=== PATIENT | female | born 1980 | race Caucasian/White ===

== ENCOUNTER 2019-12-31 08:44 | Outpatient (REF) | payer MEDICAID, SELFPAY ==
[2020-01-01 14:17] LABS: H Pylori Breath Test NOT DETECTED (NOT DETECTED)
== END 2019-12-31 08:45 | disposition home or self-care (01) ==
LOC: HO.LNP 08:44
PROVIDERS: Surgery; PCP Nurse Practitioner Family; Referring Provider Nurse Practitioner Family; Visit Provider Physician Assistant
DX: E66.01 Morbid (severe) obesity due to excess calories (principal); G47.30 Sleep apnea, unspecified; Z11.0 Encounter for screening for intestinal infectious diseases
CPT/HCPCS: 83013; 99211

== ENCOUNTER 2020-01-04 07:58 | Outpatient (REF) | payer MEDICAID, SELFPAY ==
--- NOTE | 2020-01-04 08:34 | ECG_ITS ---
Test Reason : CP Blood Pressure : / mmHG Vent. Rate : 065 BPM Atrial Rate : 065 BPM P-R Int : 102 ms QRS Dur : 122 ms QT Int : 452 ms P-R-T Axes : -07 -34 095 degrees QTc Int : 470 ms Normal sinus rhythm Tlrxv-Mapnbuihf-Afptr Left ventricular hypertrophy with repolizeration abnormality. Abnormal ECG No previous ECGs available Referred By: Isidoro Ahumada Electronically Signed By:ALBERTINA CANTRELL MD
--- NOTE | 2020-01-04 08:57 | XR_ITS ---
EXAMINATION: XR CHEST CLINICAL INFORMATION: Moderate severe vicinity due to excess calories. COMPARISON: None TECHNIQUE: 2 views of the chest were obtained. FINDINGS: No significant abnormality is noted involving the heart, lungs, mediastinum, bony thorax or soft tissues. XR/XR chest 2V IMPRESSION: Unremarkable chest examination.
[2020-01-04 09:10] LABS: MANUAL DIFF FLAG NO
[2020-01-04 09:18] LABS: Basophils Percent Auto 0.3 % (0-2); Eosinophils Absolute Auto 0.1 X10*3/uL (0.0-0.4); Eosinophils Percent Auto 1.1 % (0-4); Hematocrit 41.9 % (37-47); Hemoglobin 13.5 g/dl (12.0-16.0); Imm Gran Abs Auto 0.03 X10*3/uL (0.00-0.03); Imm Gran Pct Auto 0.4 % (0.0-0.4); Lymphocytes Absolute Auto 1.7 X10*3/uL (1.2-4.9); Lymphocytes Percent Auto 22.7 % (20-40); Mean Corpuscular HGB Conc 32.2 g/dl (31.0-35.0); Mean Corpuscular Hemoglobin 27.3 pg (27.0-33.0); Mean Corpuscular Volume 84.6 fL (80-98); Mean Platelet Volume 10.8 fL (9.4-12.3); Monocytes Absolute Auto 0.4 X10*3/uL (0.1-1.2); Monocytes Percent Auto 5.9 % (2-11); Neutrophils Absolute Auto 5.2 X10*3/uL (2.0-8.3); Neutrophils Percent Auto 69.6 % (45-73); Platelet Count 279 X10*3/uL (160-400); Red Blood Count 4.95 X10*6/uL (4.20-5.50); Red Cell Distribution Width 13.7 % (11.0-16.0); White Blood Count 7.5 X10*3/uL (4.8-10.8)
[2020-01-04 09:24] LABS: Estimated Average Glucose 108 mg/dL; Hemoglobin A1c % 5.4 %
[2020-01-04 09:40] LABS: Alanine Aminotransferase 25 U/L (0-31); Albumin Level 4.1 g/dL (3.5-5.0); Alkaline Phosphatase 86 U/L (39-117); Anion Gap 14 (12-20); Aspartate Amino Transferase 15 U/L (5-31); Bilirubin Total 0.4 mg/dL (0.0-1.0); Blood Urea Nitrogen 10 mg/dL (9-16); C Reactive Protein 2.18 mg/dL (< or = 0.50); Carbon Dioxide 25 mmol/L (22-29); Chloride 104 mmol/L (96-108); Cholesterol 154 mg/dL; Estimated Glomerular Filt Rate > 60; Glucose Random 84 mg/dL (60-115); HDL Cholesterol 39 mg/dL; LDL Cholesterol Calculated 105 mg/dl; Potassium 3.9 mmol/l (3.3-5.1); Sodium 139 mmol/L (135-145); Total Protein 7.3 g/dL (6.5-8.0); Triglycerides 54 mg/dL
[2020-01-04 10:02] LABS: Ferritin 91 ng/mL (10-250); TSH reflex Free T4 0.62 mIU/mL (0.32-4.0)
[2020-01-04 10:08] LABS: Folate 15.1 ng/mL (> or = 4.0); Vitamin B12 423 pg/mL (200-900)
[2020-01-05 23:17] LABS: Insulin Level Total 7.8 uIU/mL
[2020-01-07 05:52] LABS: Zinc 95 mcg/dL (60-130)
[2020-01-09 22:02] LABS: Vitamin A 31 mcg/dL (38-98)
[2020-01-10 12:57] LABS: Vitamin B1 <6 nmol/L (8-30)
== END 2020-01-04 07:59 | disposition home or self-care (01) ==
LOC: HO.LAB 07:58
PROVIDERS: PCP Nurse Practitioner Family; Visit Provider Surgery
DX: E66.01 Morbid (severe) obesity due to excess calories (principal); G47.30 Sleep apnea, unspecified
CPT/HCPCS: 36415; 71046; 80053; 80061; 82607; 82728; 82746; 83036; 83525; 84425; 84443; 84590; 84630; 85025; 86140; 93005

== ENCOUNTER 2020-01-11 13:01 | Outpatient (REF) | payer MEDICAID, SELFPAY ==
--- NOTE | 2020-01-11 08:44 | US_ITS ---
EXAMINATION: US COMPLETE ABDOMEN WITH LIVER ELASTOGRAPHY CLINICAL INFORMATION: Morbid obesity. COMPARISON: None. TECHNIQUE: Real-time imaging of the abdominal viscera. Noninvasive ultrasound liver fibrosis assessment is performed using Yasmine ElastPQ point quantification shear wave elastography (pSWE) with a 5 MHz transducer. Multiple elastography samples are obtained. FINDINGS: PANCREAS: The visualized pancreatic head and body are normal in appearance. The remainder of the pancreas is obscured from visualization by the overlying bowel gas. ABDOMINAL AORTA: The proximal, middle, and distal aortic segments are normal in caliber. INFERIOR VENA CAVA: Visualized portions are normal. LIVER: The liver demonstrates normal size, contour and increased echogenicity. There is focal fatty sparing near CBD. There is a focal hypoechoic lesion left hepatic lobe measuring 1.3 x 1.1 x 0.9 cm. Question focal mass versus complex cyst. Intrahepatic biliary duct dilatation. The right lobe measures 15.4 cm in length. The left lobe measures 9.8 cm in length. There is hepatopedal flow seen in the portal vein on Doppler exam. Shear wave elastography provides a median stiffness of 1.23 m/s (reference: normal median stiffness is 0.81 - 1.22 m/s). The IQR/median stiffness to assess sampling precision is 0.12 (reference: optimal IQR/median stiffness is under 0.3). GALLBLADDER: The gallbladder is suboptimally visualized, most likely due to packed echogenic shadowing gallstones. COMMON BILE DUCT: Normal in caliber measuring 0.3 cm in diameter. RIGHT KIDNEY: Normal. No hydronephrosis. No renal calculi or focal parenchymal lesions. The kidney measures 12.1 cm in maximum dimension. LEFT KIDNEY: Normal. No hydronephrosis. No renal calculi or focal parenchymal lesions. The kidney measures 11.8 cm in maximum dimension. SPLEEN: Normal. The spleen measures 9.3 cm in maximum dimension. FREE FLUID: None. US/US abdomen comp w elastography IMPRESSION: 1. Diffusely echogenic liver with focal fatty sparing. Suspect focal mass versus complex cyst left hepatic lobe. Recommend CT liver with and without contrast evaluation. There is packed gallbladder with echogenic stones and shadowing but no wall thickening. 2. Elastography: Incgev-fu-yexu fibrosis, score F0 - F1
--- NOTE | 2020-01-11 09:28 | FL_ITS ---
EXAMINATION: XR GI SERIES CLINICAL INFORMATION: Morbid severe obesity. COMPARISON: None TECHNIQUE: Routine upper GI air-contrast study was performed in upright and lying position. FINDINGS: Following oral administration of thick barium and effervescent granules in upright view, there is normal propagation of bolus from the oral cavity through the pharynx, esophagus into stomach without any evidence of obstruction, narrowing or stricture. There is a small sliding hiatal hernia. On placing patient supine and prone lying, there is normal course, caliber and peristalsis of the stomach, jejunal bulb and C-loop. Incidental finding of a grbfq-al-vdzukvca-sized hiatal hernia into the mid esophagus is noted. FLUOROSCOPY TIME: 1.7 minutes DOSE AREA PRODUCT: 42.562 uGy-m2 (microgray-meter squared) FL/FL upper GI series IMPRESSION: Moderate gastroesophageal reflux. No hiatal hernia seen.
== END 2020-01-11 13:02 | disposition home or self-care (01) ==
LOC: HO.US 13:01
PROVIDERS: PCP Nurse Practitioner Family; Visit Provider Surgery
DX: Z01.818 Encounter for other preprocedural examination (principal); E66.01 Morbid (severe) obesity due to excess calories; K21.9 Gastro-esophageal reflux disease without esophagitis; G47.30 Sleep apnea, unspecified
CPT/HCPCS: 74240; 76705; 76981

== ENCOUNTER → 2020-01-13 09:18 | Outpatient (BNVA) | payer MEDICAID, SELFPAY | PROVIDERS: PCP Nurse Practitioner Family; Visit Provider Surgery | DX: Z76.89 Persons encountering health services in other specified circumstances (principal) ==

== ENCOUNTER → 2020-01-19 08:32 | Outpatient (REF) | payer MEDICAID, SELFPAY ==
--- NOTE | 2020-01-19 08:36 | CA_ITS ---
Transthoracic Echocardiogram Patient (Last, First, Middle): Eliza Lala, Gender: Female Date of : 1980 Age: 39 Procedure Date: 01/19/2020 Procedure Type: Transthoracic Echocardiogram Location: OP Height: 160.02 cm Weight: 108.86 kg BSA: 2.09 m2 Heart Rate: bpm BP: 117 / 76 mmHg Product Owner: Referring MD: Isidoro Ahumada MD Symptoms: E66.01 - Morbid (severe) obesity due to excess calories Study Quality: Good ECG Rhythm: Sinus Conclusions: - The left ventricular systolic function is normal. The visually estimated ejection fraction is between 60-65%. - No obvious valvular pathology seen on this study. Findings Procedure Information Contrast agent, definity, is being given per protocol without apparent complications. Left Ventricle Normal left ventricular cavity size. There is normal left ventricular wall thickness. The left ventricular systolic function is normal. The visually estimated ejection fraction is between 60-65%. There is no evidence of regional wall motion abnormalities. Diastolic function is normal for age. Right Ventricle Normal right ventricular cavity size and systolic function. Atria The left atrium is normal in size. The right atrium is normal in size. Aortic Valve There is a normal trileaflet aortic valve. There is no aortic valve stenosis. There is no aortic valve regurgitation. Mitral Valve There is mild mitral annular calcification. There is trace mitral valve regurgitation. There is no mitral valve stenosis. Pulmonic Valve The pulmonic valve was not well visualized. Tricuspid Valve There is mild tricuspid valve regurgitation. The pulmonary artery systolic pressure is normal. Great Vessels The aortic annulus, sinuses of valsalva, asc aorta, and aortic arch are normal in size. Venous The inferior vena cava is normal in size and collapses greater than 50% with inspiration. Pericardium/Pleural There is no evidence of pericardial effusion. Prior Study Comparison No prior study available for comparison. Recommendations, Care & Conclusions No obvious valvular pathology seen on this study. Measurements 2D Linear Measurements RVIDd: 2.97 RVIDd Index: 1.42 IVSd: 0.79 0.6-0.9/0.6-1.0 cm LVIDd: 5.19 3.9-5.3/4.2-5.9 cm LVIDd Index: 2.48 2.4-3.2/2.2-3.1 cm/m2 LVIDs: 3.72 2.0-3.6 cm LVPWd: 0.88 0.7-1.1 cm Ao Root: 2.40 2.1-3.5 cm LA Diam: 3.90 2.7-3.8/3.0-4.0 cm LAIDs Index: 1.87 1.5-2.3 cm/m2 LV Mass: 190.79 67-162/88-224 g LV Mass Index: 91.29 43-95/49-115 g/m2 LVOT Diam: 2.00 3.0+(-)1.3 cm 2D Systolic Function EF 4C: 58.40 >55% EF 2C: 55.90 >55% EF BiP: 58.30 >55% Mitral Valve MV Pk E: 1.19 MV PK A: 0.61 MV Decel Time: 220.00 E/A: 1.90 E'Lateral: 9.90 E'Medial: 9.03 E/E' Med: 13.20 E/E' Lat: 12.00 Aortic Valve AoV Pk Bebeto: 1.96 AoV Mn Bebeto: 1.35 AoV VTI: 0.45 AoV Pk Grad: 15.00 Aov Mn Grad: 8.00 DAJUAN Cont.VTI: 1.92 LVOT LVOT Pk Bebeto: 1.17 LVOT Mn Bebeto: 0.83 LVOT VTI: 0.28 LVOT Pk Grad: 5.00 LVOT Mn Grad: 3.00 LVOT Diam: 2.00 LVOT Area: 3.14 Diastolic Function MV Pk E: 1.19 MV Pk A: 0.61 E/A: 1.90 E'Medial: 9.03 E/E' Med: 13.20 E' Laterial: 9.90 E/E' Lat: 12.00 Tricuspid Valve TR Pk Bebeto: 2.46 TR Pk Grad: 24.00 RA Press: 8.00 RVSP: 32.00 Great Vessels Aorta Ao Root-2D: 2.40 2.0-3.7 cm Ao Asc: 3.00 2.1-3.4 cm Ao Arch: 2.70 Updated in Other Vendor System with Status of Final Bang Villafuerte MD electronically signed on 01/19/2020 12:38:46 PM with status of Final
--- NOTE | 2020-01-19 09:39 | CT_ITS ---
EXAMINATION: CT ABDOMEN AND PELVIS WITHOUT AND WITH CONTRAST CLINICAL INFORMATION: Follow up liver lesion COMPARISON: Previous abdominal ultrasound December 2019 TECHNIQUE: Multidetector volumetric imaging was performed of the abdomen and pelvis before and after the IV administration of 85 mL of Omnipaque 350 intravenous contrast. Sagittal and coronal reformatted images were obtained on the technologist's workstation. This CT examination was performed using dose optimization techniques as appropriate, variously including the following: *Automated exposure control *Adjustment of mA and/or kV according to patient size (this includes techniques or standardized protocols for targeted exams where dose is matched to indication/reason for exam; i.e. extremities or head) *Use of iterative reconstruction technique DLP: 02/14/2002 mGy-cm FINDINGS: LUNG BASES: The visualized lung bases are unremarkable. LIVER, GALLBLADDER, AND BILIARY TREE: The liver is slightly low in attenuation suggestive of mild fatty infiltration. The liver is normal in size and shape. There is a 1.3 x 2 cm lesion in the peripheral posterior segment of the right lobe of the liver. This demonstrates peripheral puddling enhancement suggestive of a hemangioma axial image 64 image 4 and 5. There are 2 additional low-attenuation lesions in the posterior segment of the right lobe of the liver measuring 1.4 x 1.5 cm axial image 53 and measuring 0.6 x 0.9 cm axial image 62 and question third approximately 8 x 10 mm lesion axial image 64. These are low in attenuation with respect to the liver following contrast on both arterial and venous phases. These lesions are not appreciated on noncontrast images. These appear higher in attenuation and not compatible with a simple cysts. Enhancing vascular lesions are unlikely such as a hemangioma, FNH and adenoma and hepatocellular carcinoma . Differential would include possible abscess or metastasis. The low-attenuation lesion in the left lobe of the liver seen by ultrasound is not definitely appreciated by CT scan. The gallbladder is filled with gallstones. There is no intra or extrahepatic biliary duct dilatation. PANCREAS: Unremarkable SPLEEN: Unremarkable ADRENAL GLANDS: Unremarkable KIDNEYS AND URETERS: The kidneys are normal in size, shape, and attenuation. No hydronephrosis, hydroureter, or calculi seen. No perinephric stranding. GASTROINTESTINAL TRACT: There is stool throughout the colon questionable for constipation. Visualized bowel is otherwise unremarkable. The appendix is not seen. ABDOMINAL WALL: There is a small umbilical hernia containing fat. LYMPH NODES: Normal VASCULAR: Unremarkable OSSEOUS STRUCTURES: There are mild degenerative changes of the spine. CT/CT abdomen wo/w con IMPRESSION: Mild fatty infiltration of the liver. 1.3 x 2 cm peripheral hemangioma in the right lobe of the liver. This was not seen by ultrasound. There are 3 additional low-attenuation nonenhancing lesions in the right lobe of the liver that are difficult to characterize and were not seen by ultrasound. Possible abscess or metastasis should be considered. The liver lesion seen by ultrasound in the left lobe of the liver is not appreciated by CT scan. Follow-up liver MRI should be considered. Gallstones. Stool throughout the colon suggestive of constipation. Small umbilical hernia fat.
[2020-01-19] MEDS: iohexoL 350 MG/ML 100 ML INFUS..BTL 85 ML IV (11:58)
[2020-01-19] MEDS: Barium Sulfate Oral (Vanilla) 450 ML ORAL.SUSP 900 ML PO (11:59)
== END ==
LOC: HO.CARD 08:32
PROVIDERS: Visit Provider Surgery
DX: Z01.818 Encounter for other preprocedural examination (principal); I10 Essential (primary) hypertension; R16.0 Hepatomegaly, not elsewhere classified; I45.6 Pre-excitation syndrome; E66.01 Morbid (severe) obesity due to excess calories; G47.30 Sleep apnea, unspecified
CPT/HCPCS: 74170; 93306; Q9957; Q9967

== ENCOUNTER → 2020-01-20 08:12 | Outpatient (BNVA) | payer MEDICAID, SELFPAY | PROVIDERS: PCP Nurse Practitioner Family; Referring Provider Nurse Practitioner Family; Visit Provider Dietitian, Registered | DX: Z76.89 Persons encountering health services in other specified circumstances (principal) ==

== ENCOUNTER 2020-01-20 15:05 | Outpatient (REF) | payer MEDICAID, SELFPAY ==
--- NOTE | 2020-01-20 15:07 | MR_ITS ---
EXAMINATION: MR ABDOMEN WITHOUT AND WITH CONTRAST CLINICAL INFORMATION: Follow-up liver lesions COMPARISON: Previous abdominal ultrasound 01/11/2020 CT of the abdomen and pelvis from yesterday TECHNIQUE: MR abdomen was performed without and with use of 10 mL intravenous Gadavist gadolinium contrast. Postcontrast images are performed in multiphase dynamic sequences. Imaging was performed in 3 planes. FINDINGS: LUNG BASES: The visualized lung bases are unremarkable. LIVER, GALLBLADDER, AND BILIARY TREE: The liver is normal in size and shape. There is mild fatty infiltration of the liver. There is a 1.5 x 2.5 cm low signal on T1 and high signal on T2-weighted sequences lesion in the peripheral posterior segment of the right lobe of the liver. This demonstrates peripheral puddling enhancement following contrast and remains enhanced on delayed sequences. Enhancement characteristics are compatible with a benign hemangioma. There is a 5 x 8 mm lesion in the posterior segment of the right lobe that is low signal on T1 and high signal on T2 weighted sequences. This demonstrates delayed peripheral puddling enhancement and remains enhanced with respect to the liver on delayed sequences and is also consistent with a benign hemangioma. There is a third 1.5 cm lesion in the posterior segment of the right lobe. This is low signal on T1-weighted sequences, high signal on T2-weighted sequences, and demonstrates peripheral puddling enhancement also suggestive of a benign hemangioma. There is a fourth liver lesion in the lateral segment of the left lobe of the liver that measures approximately 1 cm. This is not appreciated on precontrast sequences. This demonstrates peripheral puddling enhancement and remains enhanced with respect to the liver on later sequences also suggestive of a benign hemangioma. This corresponds to lesion seen by ultrasound. There are multiple gallstones in the gallbladder. Gallbladder wall does not appear thickened. There is no pericholecystic fluid. Intrahepatic and extrahepatic bile ducts are normal in caliber. PANCREAS: Unremarkable. SPLEEN: Normal. ADRENAL GLANDS: Normal. KIDNEYS AND URETERS: The kidneys are normal in size, shape, and enhance symmetrically. No hydronephrosis. No perinephric stranding. GASTROINTESTINAL TRACT: No bowel obstruction. No ascites or fluid collection. ABDOMINAL WALL: There is a small umbilical hernia containing fat. LYMPH NODES: No lymphadenopathy. VASCULAR: Unremarkable. OSSEOUS STRUCTURES: Marrow signal normal. MR/MR abdomen wo/w con IMPRESSION: Four small liver lesions all likely representing benign hemangiomas. Mild fatty infiltration of the liver. Multiple gallstones in the gallbladder.
== END 2020-01-20 15:06 | disposition home or self-care (01) ==
LOC: HO.MRI 15:05
PROVIDERS: Visit Provider Surgery
DX: R16.0 Hepatomegaly, not elsewhere classified (principal)
CPT/HCPCS: 74183; A9585

== ENCOUNTER 2020-01-28 06:21 | Day surgery (SDC) | payer MEDICAID, SELFPAY ==
[2020-01-22 12:20] VITALS: BMI 43.0
[2020-01-22 12:41] VITALS: BMI 43.0
--- NOTE | 2020-01-27 12:21 | P.CONAN_ITS ---
Documented by User: Azalea Porras 01/27/20 12:25 HPI - Anesthesia Eval Consult details Narrative: 39yo F for Cholecystectomy Laparoscopic Cardiac cleared at low risk without further cardiac workup needed. (WPW) [facility] Past Medical History Medical History Back pain Depression Hx of chronic urticaria Morbid obesity Sleep apnea with use of continuous positive airway pressure (CPAP) Kdjde-Bgzmyetdk-Cwyqq (WPW) syndrome Family History Family History Mother No problems noted. Father No problems noted. Brother No problems noted. Brother No problems noted. Sister No problems noted. Sister No problems noted. 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) Do you presently have visiting nurse or other home services: No Alcohol intake: never Smoking Status: Never smoker Use of substances other than those prescribed or required for medical reasons: No Advance Directives Information Provided: Yes Recently lost weight without trying: No Meds Allergies Allergy/AdvReac Type Severity Reaction Status Date / Time No Known Allergies Allergy Verified 01/22/20 12:21 [No Known Allergies*] Home Medications Medication Instructions Recorded Confirmed Type epinephrine 0.3 mg/0.3 mL 0.3 mg IM Q10M PRN 12/22/19 01/22/20 History injection, auto-injector fexofenadine 180 mg tablet 180 mg PO DAILY 12/22/19 01/22/20 History norethindrone-e.estradiol-iron 1 tab PO DAILY 01/22/20 01/22/20 History [ ()] Exam Exam Date and Time: January 27, 2020 1221 Height,Weight and Vital Signs: Height 5 ft 3 in Weight 110.223 kg Pertinent Lab Results Pertinent Lab Results: Laboratory Tests 01/04/20 01/04/20 01/04/20 08:15 08:15 08:15 WBC 7.5 Hgb 13.5 Hct 41.9 Plt Count 279 Sodium 139 Potassium 3.9 Chloride 104 Carbon Dioxide 25 BUN 10 Creatinine 0.69 Hemoglobin A1c % 5.4 Total Bilirubin 0.4 AST 15 ALT 25 Alkaline Phosphatase 86 C-Reactive Protein 2.18 H Total Protein 7.3 Albumin 4.1 Narrative Narrative: ECHO 01/2020: - The left ventricular systolic function is normal. The visually estimated ejection fraction is between 60-65%. - No obvious valvular pathology seen on this study. EKG 12/2019: Normal sinus rhythm Rbtsx-Oakzlmwpy-Uypnr Left ventricular hypertrophy with repolizeration abnormality. Abnormal ECG No previous ECGs available Documented by User: Edilia Flores 01/28/20 09:37 PMFSH Past Medical History Medical History Back pain Depression Hx of chronic urticaria Morbid obesity Sleep apnea with use of continuous positive airway pressure (CPAP) Zqzji-Gcqbqiiyt-Baokn (WPW) syndrome Family History Family History Mother No problems noted. Father No problems noted. Brother No problems noted. Brother No problems noted. Sister No problems noted. Sister No problems noted. Daughter Autism Cerebral palsy Family history of problems with anesthesia: No Surgical History Surgical History History of surgery of head S/P tonsillectomy History of Problems with Anesthesia: No Social History Social History Are you a primary behavioral health care manager to a significant other at home: Yes (child) Do you presently have visiting nurse or other home services: No Alcohol intake: never Smoking Status: Never smoker Use of substances other than those prescribed or required for medical reasons: No Advance Directives Information Provided: Yes Recently lost weight without trying: No Meds Allergies Allergy/AdvReac Type Severity Reaction Status Date / Time No Known Allergies Allergy Verified 01/22/20 12:21 [No Known Allergies*] Home Medications Medication Instructions Recorded Confirmed Type epinephrine 0.3 mg/0.3 mL 0.3 mg IM Q10M PRN 12/22/19 01/22/20 History injection, auto-injector fexofenadine 180 mg tablet 180 mg PO DAILY 12/22/19 01/22/20 History norethindrone-e.estradiol-iron 1 tab PO DAILY 01/22/20 01/22/20 History [ ()] Exam Height,Weight and Vital Signs: Vital Signs Temp Pulse Resp BP Pulse Ox 01/28/20 06:30 97.4 F 73 16 137/72 96 Airway Mallampati Class: II TM Dist: >3cm Neck ROM: Full Loose/Missing/Broken Teeth: Yes (Cavity topfront) Heart: RRR Lungs: CTAB Assessment and Plan Assessment Anesthesia Assessment: Anesthesia Plan Discussed and Chart Reviewed Final Anesthetic Review NPO: Yes ASA Class: III Final Preanesthetic Review: No Changes in Pt Med Stat, Meds/Allgs Chart Reviewed, Consent Obtained/Reviewed and Anes Risks/Benef Reviewed Patient Risk: Intermediate Procedure Risk: Intermediate Assessment/Block/Sedation in SS: Assess/Block/Sedation-SS Anesthetic Plan Anesthetic Plan: GA Disposition: Standard PACU
[2020-01-28] VITALS (9 sets, daily range): BP systolic 136–159; BP diastolic 72–90; PULSE 70–85; RESP 16–20; TEMP 36.1–36.4; O2SAT 90–98
[2020-01-28] MEDS: Lactated Ringers 1,000 ML 100 ML IVCONT (06:54)
--- NOTE | 2020-01-28 06:55 | PC.NURSE ---
Patient did not take any medications per instructions, takes Marlen daily for chronic hives, did not take this morning which resulted in small rash on upper chest. Pt has concerns about further spread of hives, will discuss with Anes. use of antihistamine & concerns.
--- NOTE | 2020-01-28 07:33 | MHC.SHP ---
Pre-Procedural Eval Section A The patient is an INPATIENT: No The History & Physical has been completed within 30 days and I have reviewed it.: Yes Section B Chief Complaint: gallbladder w/o cholecystitis w/o obstruction Details of Present Illness: cholelithiasis Relevant Family History (Specify if Yes): No Relevant Social History: None Present Medications: see Short Stay Collaborative assessment Medical History: No relevant PMH History of Previous Operations: No relevant previous surgery Allergies: Allergies Allergy/AdvReac Type Severity Reaction Status Date / Time No Known Allergies Allergy Verified 01/22/20 12:21 [No Known Allergies*] Review of Systems Sugical H&P ROS: Negative: Constitution, Cardiovascular, Respiratory, Neurological, Psychiatric, Hem-Onc, Allergic/Immunologic, Gastrointestinal, Genitourinary, Musculoskeletal, Integumentary, Endocrine and Eyes/Ears/Nose/Throat Exam Surgical H&P Exam: Normal: HEENT, Normal: Heart, Normal: Lungs, Normal: Extremities, Normal: Abdomen, Normal: Skin and Normal: Neurological Plan Diagnosis/Plan: Unchanged I have reviewed the history and physical and performed a pertinent physical examination on my patient. No changes have occurred unless specified.
[2020-01-28] MEDS: ceFAZolin Sodium/Dextrose,Iso 2 GM/50 ML PIGGYBACK IV (07:35)
--- NOTE | 2020-01-28 09:31 | P.BOP_ITS ---
Brief Operative Note Date of Service: 01/28/20 Pre-op diagnosis: Symptomatic cholelithiasis, morbid obesity, sleep apnea, depression, asthma Post-op diagnosis: same (cholecystitis) Procedure: PROCEDURE DATE: 01/28/2020 PREOPERATIVE DIAGNOSIS: Symptomatic cholelithiasis, morbid obesity with a body mass index of 44 kg/sq. meters and comorbidities including sleep apnea, WPW syndrome, asthma, depression POSTOPERATIVE DIAGNOSIS: Same as above. Cholecystitis PROCEDURE: Laparoscopic cholecystectomy Surgeon: Israel Ahumada M.D., Ph.D. Carbonator: Katie Alejo PA-C Anesthesia: General endotracheal anesthesia Estimated blood loss: Minimal FINDINGS AND PROCEDURE: OPERATIVE INDICATIONS: The patient is a 39 year old female known to me who was initially seen in my office for evaluation for refractory morbid obesity. During the preoperative workup, the patient was found to have cholelithiasis which appears to be symptomatic. We recommended cholecystectomy before the bariatric surgery due to the higher risks of acute cholecystitis after the bariatric surgery as a result of the rapid weight loss. Risks and complications of the surgery were discussed with the patient in advance, particularly the postoperative bleeding, infection, DVT or PE, bile leak, major bile duct injury that may require additional surgical intervention, cardiac, pulmonary or renal complications among others. The patient understood the risks and was in agreement with the plan. PROCEDURE: After informed consent was obtained by the patient, the patient was transferred to the Operating Room and was placed in the supine position. The patient was given preoperative antibiotics and after successful induction of general anesthesia, pneumatic compression devices were placed. The patient was then prepped and draped in the usual sterile manner and abdominal access was established with Joann technique. The abdomen was insufflated with C02 to a pressure of 15 mmHg. A 5 mm Versi-step port was place d, slightly to the right and superior from the umbilicus. The 5 mm camera was introduced. I inspected the area where the port had been placed and there was no injury. The patient was then placed initially in a steep reverse Trendelenburg position and three additional ports were placed, specifically a 12 mm Versi-step port just to the right of the midline below the xiphoid process and two 5 mm Versi-step ports at the right upper quadrant and right flank. At that point the patient was placed in a steep reverse Trendelenburg position tilted to the left side. The gallbladder was retracted cephalad and laterally. There were adhesions between the omentum and the entire gallbladder wall that were taken down. The peritoneal attachments of the gallbladder at the triangle of Calot application trainer iorly and anteriorly were taken down. The cystic duct and artery were both seen. They were completely dissected free, skeletonized all the way to the infundibulum of the gallbladder. In a similar fashion I also cleaned the liver bed just behind the cystic artery all the way to the liver bed half way to the top of the gallbladder, to make sure there was no additional structures in this area. Once I confirmed that both structures were entering into the gallbladder and there were no other structures in the area, they were both clipped with two clips proximally, one distally and were cut in-between. Then using the electrocautery, I slowly took down the gallbladder from the liver bed. Small areas of bleeding from the liver parenchyma were controlled with the cautery. After the gallbladder was completely detached from the liver bed, it was placed in an EndoCatch bag and was removed without difficulty from the xiphoid port. I then inspected the clips at the cystic duct and artery and were both in place. There was no active bleeding from the liver bed. We thoroughly irrigated the right upper quadrant and I removed all fluid until clear. At that point the patient was placed in supine position, we deflated the abdomen and we removed all ports under direct vision and no bleeding was noted from any of the port sites. The fascia of the 12 mm port was closed using a #1 Polysorb suture. 60cc 0.25% Marcaine and Hydrocortisone were used to infiltrate the fascial closure as well as all skin incisions. The wounds were irrigated with saline mixed with antibiotic solution and then the skin was closed with 4-0 Monocryl subcuticular sutures antibiotic- coated. Steri-strips and OpSites were used to cover all incisions. The patient extubated and was transferred in stable condition to the Recovery Room for further care. I was present and performed all steps of the procedure. Ms. Alejo was the certified first assistant. There were no residents to assist with this case. Israel Ahumada M.D., Ph.D., F.A.C.S. Surgeon: Isidoro Ahumada MD Anesthesia: GETA, local and other (TAP block) Carbonator: Katie Alejo Estimated blood loss (mL): 10 IV fluids (mL): 800 Urine output (mL): 0 (No Dave to record) Pathology: other (Gallbladder) Condition: stable Disposition: PACU
[2020-01-28] MEDS: ondansetron HCL 4 MG/2 ML VIAL IVPUSH (10:13)
[2020-01-28] MEDS: diphenhydrAMINE HCL 50 MG/ML VIAL 12.5 MG IVPUSH (10:27)
== END 2020-01-28 23:59 | disposition home or self-care (01) ==
PROVIDERS: PCP Nurse Practitioner Family; Visit Provider Surgery
PROC: 0FT44ZZ Resection of Gallbladder, Percutaneous Endoscopic Approach (ICD-10-PCS; CPT 47562; principal; 2020-01-28 07:30)
DX: K80.10 Calculus of gallbladder with chronic cholecystitis without obstruction (principal); K82.8 Other specified diseases of gallbladder; E66.01 Morbid (severe) obesity due to excess calories; Z68.41 Body mass index [BMI] 40.0-44.9, adult; F32.9 Major depressive disorder, single episode, unspecified; I45.6 Pre-excitation syndrome; G47.30 Sleep apnea, unspecified; Z99.89 Dependence on other enabling machines and devices
CPT/HCPCS: 47562; 88304; J0131; J0690; J1100; J1170; J1200; J2250; J2405; J3010

== ENCOUNTER → 2020-02-03 08:09 | Outpatient (BNVA) | payer MEDICAID, SELFPAY | PROVIDERS: PCP Nurse Practitioner Family; Visit Provider Dietitian, Registered | DX: Z76.89 Persons encountering health services in other specified circumstances (principal) ==

== ENCOUNTER → 2020-02-08 08:22 | Outpatient (BNVA) | payer MEDICAID, SELFPAY | PROVIDERS: PCP Nurse Practitioner Family; Visit Provider Surgery | DX: E66.01 Morbid (severe) obesity due to excess calories (principal); I45.6 Pre-excitation syndrome | CPT/HCPCS: 99212 ==

== ENCOUNTER → 2020-02-24 08:26 | Outpatient (BNVA) | payer MEDICAID, SELFPAY | PROVIDERS: PCP Nurse Practitioner Family; Visit Provider Surgery | DX: Z76.89 Persons encountering health services in other specified circumstances (principal) ==

== ENCOUNTER → 2020-03-16 08:09 | Outpatient (BNVA) | payer MEDICAID, SELFPAY | PROVIDERS: PCP Nurse Practitioner Family; Visit Provider Surgery ==

== ENCOUNTER → 2020-03-25 13:27 | Outpatient (BNVA) | payer MEDICAID, SELFPAY | PROVIDERS: PCP Nurse Practitioner Family; Visit Provider Surgery ==

== ENCOUNTER → 2020-04-15 14:08 | Outpatient (BNVA) | payer MEDICAID, SELFPAY | PROVIDERS: PCP Nurse Practitioner Family; Visit Provider Physician Assistant ==

== ENCOUNTER 2020-04-19 15:00 | Inpatient (IN) | payer MEDICAID, SELFPAY ==
[2020-04-12 12:05] LABS: MANUAL DIFF FLAG NO
[2020-04-12 12:15] LABS: Basophils Percent Auto 0.2 % (0-2); Eosinophils Absolute Auto 0.1 X10*3/uL (0.0-0.4); Eosinophils Percent Auto 0.6 % (0-4); Hematocrit 44.8 % (37-47); Hemoglobin 14.1 g/dl (12.0-16.0); Imm Gran Abs Auto 0.04 X10*3/uL (0.00-0.03); Imm Gran Pct Auto 0.4 % (0.0-0.4); Lymphocytes Absolute Auto 2.3 X10*3/uL (1.2-4.9); Lymphocytes Percent Auto 23.6 % (20-40); Mean Corpuscular HGB Conc 31.5 g/dl (31.0-35.0); Mean Corpuscular Hemoglobin 26.8 pg (27.0-33.0); Mean Corpuscular Volume 85.2 fL (80-98); Mean Platelet Volume 10.3 fL (9.4-12.3); Monocytes Absolute Auto 0.6 X10*3/uL (0.1-1.2); Monocytes Percent Auto 6.2 % (2-11); Neutrophils Absolute Auto 6.6 X10*3/uL (2.0-8.3); Platelet Count 292 X10*3/uL (160-400); Red Blood Count 5.26 X10*6/uL (4.20-5.50); Red Cell Distribution Width 13.5 % (11.0-16.0); White Blood Count 9.5 X10*3/uL (4.8-10.8)
[2020-04-12 12:17] LABS: INTERNATIONAL NORM RATIO 1.1 (0.9-1.1); Prothrombin Time 12.8 SEC (10.8-13.0)
[2020-04-12 12:20] LABS: Partial Thromboplastin Time 30.6 SEC (24.1-38.0)
[2020-04-12 12:30] LABS: Estimated Average Glucose 103 mg/dL; Hemoglobin A1c % 5.2 %
[2020-04-12 12:48] LABS: Alanine Aminotransferase 22 U/L (0-31); Albumin Level 4.1 g/dL (3.5-5.0); Alkaline Phosphatase 85 U/L (39-117); Anion Gap 12 (12-20); Aspartate Amino Transferase 13 U/L (5-31); Bilirubin Total 0.5 mg/dL (0.0-1.0); Blood Urea Nitrogen 10 mg/dL (9-16); C Reactive Protein 0.97 mg/dL (< or = 0.50); Calcium 8.6 mg/dL (8.4-10.2); Carbon Dioxide 26 mmol/L (22-29); Chloride 104 mmol/L (96-108); Cholesterol 160 mg/dL; Estimated Glomerular Filt Rate > 60; Glucose Random 92 mg/dL (60-115); HDL Cholesterol 47 mg/dL; LDL Cholesterol Calculated 97 mg/dl; Sodium 138 mmol/L (135-145); Triglycerides 81 mg/dL
[2020-04-12 12:56] LABS: Ferritin 67 ng/mL (10-250); TSH reflex Free T4 0.64 uIU/mL (0.32-4.0); Vitamin D 25-OH Total 17.6 ng/mL (>30)
[2020-04-12 13:17] LABS: Vitamin B12 353 pg/mL (200-900)
[2020-04-13 05:26] LABS: Insulin Level Total 16.6 uIU/mL
[2020-04-14 12:01] LABS: Calcium (PTHI) 9.1 mg/dL (8.6-10.2); PTHI 48 pg/mL (14-64)
[2020-04-15 00:01] LABS: Zinc 90 mcg/dL (60-130)
[2020-04-15 12:47] VITALS: BMI 40.7
[2020-04-16 12:56] LABS: Vitamin B1 8 nmol/L (8-30)
[2020-04-18 04:42] LABS: Vitamin A 37 mcg/dL (38-98)
--- NOTE | 2020-04-18 12:28 | HO.ANESPROP2 ---
Documented by User: Azalea Porras 04/18/20 12:34 HPI - Anesthesia Eval Consult details Narrative: 39yo F for Gastrectomy Sleeve WPW with ablation 04/08/20. 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 s/p lap óscar 01/2020 with GA-ETT 7 PMFSH Active Problems Active Problems: All Active Problems (Updated 04/15/20 @ 12:42 by Adwoa Kuo) Vitamin A deficiency (Acute) Liver mass, left lobe (Acute) Cholelithiasis (Acute) Liver mass, right lobe (Acute) Back pain (Acute) Zojeh-Agftaczxr-Kpprq (WPW) syndrome (Acute) Depression (Acute) Sleep apnea with use of continuous positive airway pressure (CPAP) (Acute) Morbid obesity (Acute) Past Medical History Medical History (Updated 04/19/20 @ 12:22 by Edilia Flores) Allergic rhinitis Anxiety Back pain Depression Hemangioma Hemangioma of liver History of PCOS Hx of chronic urticaria Idiopathic urticaria IUD (intrauterine device) in place Morbid obesity Pilar cysts Sleep apnea with use of continuous positive airway pressure (CPAP) Ynteg-Wwhdxgoco-Cfwms (WPW) syndrome Family History Family History Mother No problems noted. Father No problems noted. Brother No problems noted. Brother No problems noted. Sister No problems noted. Sister No problems noted. Daughter Autism Cerebral palsy Surgical History Surgical History (Updated 04/15/20 @ 12:42 by Adwoa Kuo) H/O cardiac radiofrequency ablation Hx laparoscopic cholecystectomy S/P tonsillectomy Social History Social History (Updated 04/15/20 @ 12:43 by Adwoa Kuo) Alcohol intake: never Smoking Status: Never smoker Use of substances other than those prescribed or required for medical reasons: No Meds Allergies Allergy/AdvReac Type Severity Reaction Status Date / Time No Known Allergies Allergy Verified 03/25/20 14:26 [No Known Allergies*] Home Medications Medication Instructions Recorded Confirmed Last Taken Type epinephrine 0.3 mg/0.3 mL 0.3 mg IM Q10M PRN 12/22/19 04/15/20 Unknown History injection, auto-injector fexofenadine 180 mg tablet 180 mg PO DAILY 12/22/19 04/15/20 Unknown History Exam Exam Date and Time: April 18, 2020 1228 Height,Weight and Vital Signs: Height 5 ft 3 in Weight 104.326 kg Pertinent Lab Results Pertinent Lab Results: Laboratory Tests 04/12/20 04/12/20 04/12/20 10:57 10:57 10:57 WBC 9.5 RBC 5.26 Hgb 14.1 Hct 44.8 MCV 85.2 MCH 26.8 L MCHC 31.5 RDW 13.5 Plt Count 292 MPV 10.3 Immature Gran % (Auto) 0.4 Neut % (Auto) 69.0 Lymph % (Auto) 23.6 [place] % (Auto) 6.2 Eos % (Auto) 0.6 Baso % (Auto) 0.2 Lymph # (Auto) 2.3 [place] # (Auto) 0.6 Eos # (Auto) 0.1 Baso # (Auto) 0.0 Abs Immat Gran (auto) 0.04 H Absolute Neuts (auto) 6.6 Absolute Nucleated RBC 0.000 Nucleated RBC % (auto) 0.0 PT 12.8 INR 1.1 APTT 30.6 Sodium 138 Potassium 4.0 Chloride 104 Carbon Dioxide 26 Anion Gap 12 BUN 10 Creatinine 0.65 Estim Creat Clear Calc TNP Estimated GFR > 60 Random Glucose 92 Estimat Average Glucose Hemoglobin A1c % Total Insulin Calcium 8.6 Ferritin 67 Total Bilirubin 0.5 AST 13 ALT 22 Alkaline Phosphatase 85 C-Reactive Protein 0.97 H Total Protein 7.0 Albumin 4.1 Triglycerides 81 Cholesterol 160 LDL Cholesterol, Calc 97 HDL Cholesterol 47 D Vitamin A Vitamin B1 Vitamin B12 25-OH Vitamin D Total 17.6 TSH 0.64 PTH Intact Calcium (PTH Intact) Zinc Blood Type Antibody Screen 04/12/20 04/12/20 04/12/20 10:57 10:57 10:57 WBC RBC Hgb Hct MCV MCH MCHC RDW Plt Count MPV Immature Gran % (Auto) Neut % (Auto) Lymph % (Auto) [place] % (Auto) Eos % (Auto) Baso % (Auto) Lymph # (Auto) [place] # (Auto) Eos # (Auto) Baso # (Auto) Abs Immat Gran (auto) Absolute Neuts (auto) Absolute Nucleated RBC Nucleated RBC % (auto) PT INR APTT Sodium Potassium Chloride Carbon Dioxide Anion Gap BUN Creatinine Estim Creat Clear Calc Estimated GFR Random Glucose Estimat Average Glucose 103 Hemoglobin A1c % 5.2 Total Insulin Calcium Ferritin Total Bilirubin AST ALT Alkaline Phosphatase C-Reactive Protein Total Protein Albumin Triglycerides Cholesterol LDL Cholesterol, Calc HDL Cholesterol Vitamin A 37 L Vitamin B1 8 Vitamin B12 353 25-OH Vitamin D Total TSH PTH Intact Calcium (PTH Intact) Zinc Blood Type Antibody Screen 04/12/20 04/12/20 04/12/20 10:57 10:57 10:57 WBC RBC Hgb Hct MCV MCH MCHC RDW Plt Count MPV Immature Gran % (Auto) Neut % (Auto) Lymph % (Auto) [place] % (Auto) Eos % (Auto) Baso % (Auto) Lymph # (Auto) [place] # (Auto) Eos # (Auto) Baso # (Auto) Abs Immat Gran (auto) Absolute Neuts (auto) Absolute Nucleated RBC Nucleated RBC % (auto) PT INR APTT Sodium Potassium Chloride Carbon Dioxide Anion Gap BUN Creatinine Estim Creat Clear Calc Estimated GFR Random Glucose Estimat Average Glucose Hemoglobin A1c % Total Insulin 16.6 Calcium Ferritin Total Bilirubin AST ALT Alkaline Phosphatase C-Reactive Protein Total Protein Albumin Triglycerides Cholesterol LDL Cholesterol, Calc HDL Cholesterol Vitamin A Vitamin B1 Vitamin B12 25-OH Vitamin D Total TSH PTH Intact 48 Calcium (PTH Intact) 9.1 Zinc 90 Blood Type A Positive Antibody Screen NEGATIVE Narrative Narrative: EKG 04/08/20 (s/p ablation) NSR @ 91 ?LVH T wave abnormality, ? consider inferior ischemia Compared to preop EKG, criteria for WPW no longer present and T wave inversion now present ECHO 01/2020: - The left ventricular systolic function is normal. The visually estimated ejection fraction is between 60-65%. - No obvious valvular pathology seen on this study. Assessment and Plan Assessment Anesthesia Assessment: Chart Reviewed Documented by User: Edilia Flores 04/19/20 12:23 [facility] Past Medical History Medical History (Updated 04/19/20 @ 12:22 by Edilia Flores) Allergic rhinitis Anxiety Back pain Depression Hemangioma Hemangioma of liver History of PCOS Hx of chronic urticaria Idiopathic urticaria IUD (intrauterine device) in place Morbid obesity Pilar cysts Sleep apnea with use of continuous positive airway pressure (CPAP) Tdrko-Hugmbcowb-Bbbve (WPW) syndrome Family History Family History Mother No problems noted. Father No problems noted. Brother No problems noted. Brother No problems noted. Sister No problems noted. Sister No problems noted. Daughter Autism Cerebral palsy Surgical History Surgical History (Updated 04/15/20 @ 12:42 by Adwoa Kuo) H/O cardiac radiofrequency ablation Hx laparoscopic cholecystectomy S/P tonsillectomy Social History Social History (Updated 04/15/20 @ 12:43 by Adwoa Kuo) Alcohol intake: never Smoking Status: Never smoker Use of substances other than those prescribed or required for medical reasons: No Meds Allergies Allergy/AdvReac Type Severity Reaction Status Date / Time No Known Allergies Allergy Verified 03/25/20 14:26 [No Known Allergies*] Home Medications Medication Instructions Recorded Confirmed Last Taken Type epinephrine 0.3 mg/0.3 mL 0.3 mg IM Q10M PRN 12/22/19 04/15/20 Unknown History injection, auto-injector fexofenadine 180 mg tablet 180 mg PO DAILY 12/22/19 04/15/20 Unknown History Exam Height,Weight and Vital Signs: Vital Signs Temp Pulse Resp BP Pulse Ox 04/19/20 11:03 97.7 F 88 18 129/77 97 Pertinent Lab Results Pertinent Lab Results: Laboratory Results - last 24 hr 04/19/20 04/19/20 10:40 10:43 Urine Test NEGATIVE COVID-19 ([facility]) Negative COVID-19 Clin Com See Note Airway Mallampati Class: II TM Dist: >3cm Neck ROM: Full Loose/Missing/Broken Teeth: Yes (Cavity top front left) Heart: RRR Lungs: CTAB Assessment and Plan Assessment Anesthesia Assessment: Anesthesia Plan Discussed and Chart Reviewed Final Anesthetic Review NPO: Yes ASA Class: III Final Preanesthetic Review: No Changes in Pt Med Stat, Meds/Allgs Chart Reviewed, Consent Obtained/Reviewed and Anes Risks/Benef Reviewed Patient Risk: Intermediate Procedure Risk: Intermediate Assessment/Block/Sedation in : Assess/Block/Sedation- Anesthetic Plan Anesthetic Plan: GA Disposition: Standard PACU
[2020-04-19] VITALS (12 sets, daily range): BP systolic 129–162; BP diastolic 72–102; PULSE 72–90; RESP 6–19; TEMP 36.1–37.4; O2SAT 95–100
--- NOTE | 2020-04-19 07:40 | MHC.SHP ---
Pre-Procedural Eval Section A The patient is an INPATIENT: Yes The History & Physical has been completed within 30 days and I have reviewed it.: Yes Section B Chief Complaint: severe obesity Details of Present Illness: obesity Relevant Family History (Specify if Yes): No Relevant Social History: None Present Medications: see Short Stay Collaborative assessment Medical History: No relevant PMH History of Previous Operations: No relevant previous surgery Allergies: Allergies Allergy/AdvReac Type Severity Reaction Status Date / Time No Known Allergies Allergy Verified 03/25/20 14:26 [No Known Allergies*] Review of Systems Sugical H&P ROS: Negative: Constitution, Cardiovascular, Respiratory, Neurological, Psychiatric, Hem-Onc, Allergic/Immunologic, Gastrointestinal, Genitourinary, Musculoskeletal, Integumentary, Endocrine and Eyes/Ears/Nose/Throat Exam Surgical H&P Exam: Normal: HEENT, Normal: Heart, Normal: Lungs, Normal: Extremities, Normal: Abdomen, Normal: Skin and Normal: Neurological Plan Diagnosis/Plan: Unchanged I have reviewed the history and physical and performed a pertinent physical examination on my patient. No changes have occurred unless specified.
[2020-04-19 11:00] LABS: UPreg QC Valid YES; Urine Pregnancy NEGATIVE (NEGATIVE)
[2020-04-19 11:15] LABS: COVID-19 Test Negative (Negative)
--- NOTE | 2020-04-19 15:07 | P.DS_ITS ---
DS: Providers Provider Date of Service: 04/20/20 Primary care physician: Donita Belle NP DS: Medications Discharge Medications Home Medications: Home Medications Medication Instructions Recorded Confirmed epinephrine 0.3 mg/0.3 mL 0.3 mg IM Q10M PRN 12/22/19 04/15/20 injection, auto-injector fexofenadine 180 mg tablet 180 mg PO DAILY 12/22/19 04/15/20 Previous Rx's Medication Instructions Recorded mecobalamin (vitamin B12) 1,000 1,000 mcg SUBLINGUAL DAILY #30 tab 01/18/20 mcg disintegrating tablet,sublingual ondansetron HCl 4 mg tablet 4 mg PO DAILY #14 tab 03/25/20 pantoprazole 40 mg tablet,delayed 40 mg PO DAILY #30 tab 03/25/20 release polyethylene glycol 3350 17 gram 17 g PO DAILY #14 ea 03/25/20 oral powder packet DS: Summary Time Spent with Patient Time attestation: ADMITTING DIAGNOSIS: morbid obesity, sleep apnea, hx WPW, chronic urticaria, hiatal hernia DISCHARGE DIAGNOSIS: same, s/p laparoscopic sleeve gastrectomy and repair of hiatal hernia PAST SURGICAL HISTORY: cardiac ablation PROCEDURE: upper endoscopy, laparoscopic sleeve gastrectomy DISCHARGE SUMMARY: History of Present Illness: The patient is a 39 year-old woman with a BMI of 44.5 kg/m2 and associated co-morbidities as described above. The patient had extensive work-up,lost 23.4 lbs preoperatively and was electively scheduled for laparoscopic, possible open sleeve gastrectomy and gastropexy. Risks and complications of the surgery were discussed with the patient in advance, particularly the possibility of , pulmonary embolism, anastomotic leak, bleeding, bowel injury, GERD, cardiac, renal or pulmonary complications. The patient understood all the risks and was in agreement with the surgical plan. Hospital Course: The patient underwent an uneventful laparoscopic sleeve gastrectomy with heath ropexy and repair of hiatal hernia on the day of admission. Postoperatively, the patient was transferred to the surgical floor. The patient was on IV Acetaminophen and IV dilaudid for pain control. Patient was started on bariatric phase 1 diet POD #0. On postoperative day one, the patient was feeling well without nausea, vomiting, fevers, or tachycardia. The patient had some mild incisional pain. The abdomen was soft. On the morning of postoperative day one, the patient was continued on 1 ounce of water or ice every half hour. During the first day, the patient did fairly well, having some incisional pain, but able to ambulate adequately and to tolerate liquids well. Since the patient is doing well, we decided that the patient was ready to be discharged. The patient was given instructions to follow-up with me next week and to call my office for any fever over 101, persistent abdominal pain, nausea, vomiting, GERD, symptoms of DVT such as calf tenderness, or leg swelling, or pulmonary embolism such as chest pain or shortness of breath. The patient was also instructed to drink 40-60 ounces of liquids per day using the 1-ounce cups. The patient was given prescription for Tylenol for pain, Zofran prn for nausea, and pantoprazole and carafate. The patient was encouraged to ambulate and use the incentive spirometer. The patient was allowed to shower, but no baths, and encouraged to stay active at home. All of these instructions were given to the patient personally. All questions were answered and the patient understood all instructions, the instructions were also given to the patient in print. Total time spent providing and/or coordinating discharge services: 17 minutes Discharge coordination time: Less than 30 minutes Physical Exam Vital Signs: Vital Signs: Last Vital Signs Temp 97.7 F 04/19/20 11:03 Pulse 88 04/19/20 11:03 Resp 18 04/19/20 11:03 BP 129/77 04/19/20 11:03 Pulse Ox 97 04/19/20 11:03 Body Mass Index 40.7 DS: Data Data Completed and Pending Pending studies at discharge: Pending at discharge 04/19/20 14:45 Surgical [PTH] Routine Labs on day of discharge: Laboratory Results - last 24 hr 04/19/20 04/19/20 10:40 10:43 Urine Test NEGATIVE COVID-19 ([facility]) Negative COVID-19 Clin Com See Note Discharge Plan Discharge Patient Disposition: Home, Self-Care Referrals: Donita Belle NP [Primary Care Provider] - Discharge Medications: Continued sucralfate [Carafate] 100 mg/mL suspension 10 ml PO BID RF: 0 fexofenadine [Marlen Allergy] 180 mg tablet 180 mg PO DAILY RF: 0 epinephrine 0.3 mg/0.3 mL auto-injector 0.3 mg IM Q10M PRN (Reason: Itching) RF: 0 pantoprazole 40 mg tablet,delayed release (DR/EC) 40 mg PO DAILY Qty: 30 RF: 2 Held norethindrone ac-eth estradiol [ ()] 1.5-30 mg-mcg tablet 1 tab PO DAILY RF: 0 Hold Instructions: Resume on 05/21/20. Discontinued thiamine HCl (vitamin B1) 100 mg tablet 100 mg PO DAILY RF: 0 aspirin 81 mg tablet,delayed release (DR/EC) 81 mg PO DAILY RF: 0 cyanocobalamin (vitamin B-12) 1,000 mcg tablet, sublingual 1,000 mcg PO DAILY RF: 0 Discharge Orders: Discharge Order (Routine); Ordered 04/20/20 Ordered By: Isidoro Ahumada Diet: other Activity on Discharge: No heavy lifting Stand Alone Forms: Patient Portal Discharge page Activity Restrictions/Additional Instructions: No tub baths, sex or returning to work until discussed at first post op appointment. No exercise, alcohol, tobacco or illegal drug use. Continue to use incentive spirometer hourly while awake. Walk in home for 5- 10 minutes every 2 hours during the first week. Continue phase 1 diet today and start phase 2 diet tomorrow morning. Follow all instructions in the bariatric handbook and call with any questions. Care Plan Goals: weight loss Health Concerns: morbid obesity Plan of Treatment: see discharge instructions Discharge Date/Time: 04/20/20 09:11
[2020-04-19] MEDS: ondansetron HCL 4 MG/2 ML VIAL IVPUSH (15:32)
[2020-04-19 16:02] LABS: Hematocrit 43.3 % (37-47); Hemoglobin 14.1 g/dl (12.0-16.0)
[2020-04-19 16:45] LABS: Anion Gap 16 (12-20); Blood Urea Nitrogen 9 mg/dL (9-16); Calcium 8.4 mg/dL (8.4-10.2); Carbon Dioxide 19 mmol/L (22-29); Chloride 105 mmol/L (96-108); Creatinine Clr Calc Pharmacy 127.6; Estimated Glomerular Filt Rate > 60; Glucose Random 107 mg/dL (60-115); Potassium 4.2 mmol/L (3.3-5.1); Sodium 136 mmol/L (135-145)
[2020-04-19] MEDS: Lactated Ringers 1,000 ML 125 ML IVCONT (18:13)
[2020-04-19] MEDS: ceFAZolin Sodium/Dextrose,Iso 2 GM/50 ML PIGGYBACK IV (18:14)
[2020-04-19] MEDS: Metoclopramide HCl 10 MG/2 ML VIAL IVPUSH (19:26)
--- NOTE | 2020-04-19 19:30 | P.BOP_ITS ---
Brief Operative Note Date of Service: 04/19/20 Pre-op diagnosis: Morbid obesity and comorbidities Post-op diagnosis: same (& diaphragmatic hernia) Procedure: INITIAL PATIENT BMI ON PRESENTATION AT OUR OFFICE: 44.6 kg/m2 LAST BMI BEFORE SURGERY: 41.2 kg/m2 COMORBIDITIES: Njic-Xbipnrset-Zjlgi syndrome, GERD, asthma, sleep apnea on CPAP, depression, liver steatosis, liver fibrosis The patient participated in an intensive weekly lifestyle intervention and exercise program during which the patient has lost between the initial office visit and the last preoperative visit 23.4 lbs, or 9.14% of initial actual body weight. The patient met the BMI-criteria for bariatric surgery based on the BMI on initial presentation. The patient should not be penalized for achieving such weight loss because it is not sustainable long-term without surgical intervention and it was achieved in preparation for bariatric surgery under my direction and based on my published research ([email or web address] and htt [email or web address]) that a 10% preoperative weight loss improves long-term weight loss after surgery and reduces perioperative complications. Insurance carriers such as [facility] have endorsed my recommendations and have included in their policies criteria to include a 10% preoperative weight loss requirement. PROCEDURE: Esophago-gastroscopy, laparoscopic repair of incarcerated diaphragmatic hernia, laparoscopic sleeve gastrectomy and laparoscopic gastropexy INDICATIONS: This is a 49 year-old female who was electively scheduled for laparoscopic, possibly open sleeve gastrectomy. The risks and complications of the procedure were discussed with the patient in advance, particularly the possibility of ; pulmonary embolism; staple line leak; bleeding; GERD; cardiac, pulmonary, or renal complications; as well as long-term problems such as insufficient weight loss, vitamin deficiency, strictures, or ulcers. The patient understood all the risks, and was in agreement to proceed with surgery. DESCRIPTION OF PROCEDURE: After informed consent was obtained from the patient, the patient was given preoperative antibiotics, and was transferred to the operating room. After successful induction of general anesthesia, pneumatic compressive devices were placed on both lower extremities. An upper endoscopy was performed next. The oropharynx and esophagus appeared to be within normal limits. There was a diaphragmatic hernia present of moderate that was not reported at the preoperative upper GI. The stomach was entered. Then after all fluid and air were suctioned and the stomach was fully decompressed, the scope was withdrawn and secured in the mid esophagus. The patient was then prepped and draped in the usual sterile manner, and abdominal access was established at the right upper quadrant with the Joann technique. A 12 mm blunt port was inserted, and the abdomen was insufflated with CO2 to a pressure of 15 mmHg. Under direct visualization, additional ports were placed, specifically two 5 mm Versi-step ports to the left upper quadrant, and a 5 mm Versi-Step port to the right upper quadrant. 1% lidocained plan was used to infiltrate all port sites as well as all fascia defects. Using the EndoClose suture passer device, we placed a #1 Polysorb tie across the falciform ligament in order to retract it up against the abdominal wall and prevent injury of the ligament with our instruments during the procedure. Following that, the patient was placed in a steep reverse Trendelenburg position. An additional 5 mm port was placed to the right flank for the Mediflex retractor that was used to retract the left lobe of the liver. The gastro-esophageal fat pad was opened with the ultrasonic device (Thunderbeat, Olympus) and the anterior esophagus and hiatus were exposed. The angle of His was opened with the ultrasonic device the fundus of the stomach from any diaphragmatic and splenic attachments. I then opened the gastrocolic ligament between the transverse colon and the greater curvature of the stomach with the ultrasonic device to enter the lesser sac and facilitate the ligation of the short gastric vessels. I started at a mid-point along the greater curvature and using the Thunderbeat, all short gastric vessels were divided all the way to the angle of His until the left grey was completely dissected at its entirety. I then divided the gastro-colic ligament distally to a distance of about 3-4 cm proximal to the esophagus. There was an obvious significant-sized hiatal hernia. I continued dissecting along the hiatus toward the left grey and the angle of His. I fully mobilized the fat pad that was incarcerated in the hernia. I then continued by dissecting even further into the posterior retro-esophageal space all the way to the angle of His. I continued to mobilize the esophagus into the mediastinum circumferentially. Both vagal nerves were seen and preserved. At that point, I was able to have at least 3 to 5 cm of esophagus into the abdomen. The right grey was also dissected free completely. After I completely mobilized the esophagus from both the left and right grey and I had a good mobilization of the esophagus circumferentially, I closed the hernia defect with three interrupted #0 Surgidac suture susing the Endo Stitch device, two of which were placed posterior and one anterior to the esophagus. The stomach was then divided transversely with one Endo ELLEN-45 and three ELLEN-60 articulating purple loads using the [employer] stapler and loads. Every effort was made that the gastric sleeve had a tubular shape and an even caliber throughout. Once the sleeve resection was completed, the staple line of the gastric sleeve was reinforced with Hemoclips. The resected stomach was retrieved without difficulty from the Joann port. A gastropexy was then performed in order to prevent postoperative GERD and partial gastric volvulus. Several interrupted 2.0 Surgidac sutures were placed between the sleeve's staple line and the previously divided greater omentum and gastro-colic ligament using the Endo-Stitch device. An upper endoscopy was performed. There was no narrowing at the GE junction. The scope was easily advanced all the way to the pylorus which was clearly visualized. There was no narrowing anywhere and the sleeve's caliber was even throughout. The sleeve's staple line was inspected and there was no evidence of ischemia, bleeding or dehiscence. At that point the gastroscope was withdrawn from the patient?s mouth while we were decompressing the bowel and the stomach from any remaining air. I looked into the lesser sac to see how the sleeve was situating and it was situating well. There was no bleeding from the staple line, spleen, or short gastric vessels. The Mediflex retractor was removed, and the undersurface of the liver was inspected and there was no bleeding. The patient was placed in supine position. I closed the fascial defect of the 12 mm port site with a figure of eight #1 Polysorb suture. Then 100 cc 0.25 % Marcaine plain with 10 mg of Dexamethasone were used to infiltrate the fascial closure as well as all skin incisions. At this point, the abdomen was deflated, all ports were removed under direct vision, and no bleeding was noted from any of the port sites. The skin incisions were irrigated with saline and were closed with 4-0 absorbable monofilament sutures. Steri-Strips and OpSites were used to cover all incisions. The patient was extubated and was transferred in stable condition to the recovery room for further care. I was present and performed all mclean parts of the procedure. Driss Alejo was the integration assistant. There were no residents to assist with this case. Israel Ahumada MD, PhD, FACS Surgeon: Isidoro Ahumada MD Anesthesia: GETA, local and other (TAP block) Cloth Drier: Katie Alejo Estimated blood loss (mL): 10 IV fluids (mL): 3,000 Urine output (mL): 0 (No Dave to record) Pathology: other (Stomach) Condition: stable
--- NOTE | 2020-04-19 19:36 | PM.PNGS ---
Subjective Subjective Date of Service: 04/20/20 Interval history: Patient has mild incisional pain. Was able to ambulate and use the incentive spirometer. Physical Exam Vital Signs: Vital Signs: Last Vital Signs Temp 97.3 F 04/19/20 17:13 Pulse 84 04/19/20 17:13 Resp 18 04/19/20 17:13 BP 136/72 04/19/20 17:13 Pulse Ox 97 04/19/20 17:13 Body Mass Index 40.7 GI: Inspection: Yes normal to inspection, Yes incision (dry, clean and intact) and Yes obesity Extrem: Right lower extremity: normal to inspection (no calf tenderness) Left lower extremity: normal to inspection (no calf tenderness) Progress Note: A&P Assessment and plan (1) Gehxe-Kalkfdikf-Cgqph (WPW) syndrome: Problem details: ablation 04/08/2020 Status: Acute (2) Depression: Status: Acute (3) Sleep apnea with use of continuous positive airway pressure (CPAP): Status: Acute (4) Morbid obesity: Problem details: BMI 40.7 Status: Acute (5) GERD (gastroesophageal reflux disease): Status: Acute (6) Diaphragmatic hernia: Status: Acute (7) S/P laparoscopic sleeve gastrectomy: Status: Acute Assessment and Plan: 39 year old Female was admitted 04/19/2020 with morbid obesity and comorbidities. Problem 1: s/p laparoscopic sleeve gastrectomy, repair of incarcerated diaphragmatic hernia, gastropexy Status: Doing well Plan: Check am labs, If OK, will begin phase 1 bariatric diet. (8) S/P repair of paraesophageal hernia: Status: Acute (9) Asthma: Status: Acute Fall Risk Details Current Medications: Current Medications Generic Name Dose Route Start Last Admin Trade Name Freq PRN Reason Stop Dose Admin Famotidine 20 mg 04/19/20 21:00 Famotidine/Pf 20 Mg/2 Ml Vial IVPUSH BID FAMILIA Hydromorphone HCl 0.25 mg 04/19/20 17:17 Hydromorphone Hcl 0.5 Mg/0.5 Ml Syringe IVPUSH Q4H PRN Pain, Moderate (Pain Scale 4-6 Lactated Ringer's 1,000 mls @ 125 mls/hr 04/19/20 17:17 04/19/20 18:13 Lr IVCONT 125 mls/hr .Q8H FAMILIA Administration Acetaminophen 1,000 mg in 100 mls @ 16.7 mls/hr 04/19/20 20:00 Ofirmev IV .Q6H FAMILIA Metoclopramide HCl 10 mg 04/19/20 15:43 04/19/20 19:26 Metoclopramide Hcl 10 Mg/2 Ml Vial IVPUSH 10 mg ONCE PRN Administration Nausea and Vomiting Metoclopramide HCl 10 mg 04/19/20 17:17 Metoclopramide Hcl 10 Mg/2 Ml Vial IVPUSH Q6H PRN Nausea Ondansetron HCl 4 mg 04/19/20 17:17 04/19/20 18:01 Ondansetron Hcl 4 Mg/2 Ml Vial IVPUSH Not Given Q8H FAMILIA Sodium Chloride 3 ml 04/19/20 17:17 04/19/20 18:14 0.9 % Sodium Chloride Flush 3 Ml Syringe IVFLUSH Not Given QSHIFT FAMILIA Time Spent With Patient Time: Total time spent is greater than 50% in coordination of care (as documented) at patient's floor/unit and/or counseling patient: Time with patient: less than 15 minutes
[2020-04-19] MEDS: 0.9 % Sodium Chloride Flush 3 ML SYRINGE IVFLUSH (20:37)
[2020-04-19] MEDS: Famotidine/PF 20 MG/2 ML VIAL IVPUSH (20:37)
[2020-04-20] MEDS: ondansetron HCL 4 MG/2 ML VIAL IVPUSH (00:47)
[2020-04-20] MEDS: Lactated Ringers 1,000 ML 125 ML IVCONT (02:13)
[2020-04-20 04:00] VITALS: BP 145/82; PULSE 69; RESP 20; TEMP 36.6
[2020-04-20 06:38] LABS: MANUAL DIFF FLAG NO
[2020-04-20 06:47] LABS: Basophils Percent Auto 0.1 % (0-2); Hematocrit 42.8 % (37-47); Hemoglobin 13.8 g/dl (12.0-16.0); Imm Gran Abs Auto 0.05 X10*3/uL (0.00-0.03); Imm Gran Pct Auto 0.4 % (0.0-0.4); Lymphocytes Absolute Auto 0.9 X10*3/uL (1.2-4.9); Lymphocytes Percent Auto 7.3 % (20-40); Mean Corpuscular HGB Conc 32.2 g/dl (31.0-35.0); Mean Corpuscular Hemoglobin 26.7 pg (27.0-33.0); Mean Corpuscular Volume 82.9 fL (80-98); Mean Platelet Volume 10.3 fL (9.4-12.3); Monocytes Absolute Auto 0.4 X10*3/uL (0.1-1.2); Neutrophils Absolute Auto 11.4 X10*3/uL (2.0-8.3); Neutrophils Percent Auto 89.2 % (45-73); Platelet Count 294 X10*3/uL (160-400); Red Blood Count 5.16 X10*6/uL (4.20-5.50); Red Cell Distribution Width 13.2 % (11.0-16.0); White Blood Count 12.8 X10*3/uL (4.8-10.8)
[2020-04-20 07:07] LABS: Anion Gap 14 (12-20); Blood Urea Nitrogen 7 mg/dL (9-16); Calcium 8.6 mg/dL (8.4-10.2); Carbon Dioxide 21 mmol/L (22-29); Chloride 104 mmol/L (96-108); Creatinine Clr Calc Pharmacy 137.9; Estimated Glomerular Filt Rate > 60; Glucose Random 103 mg/dL (60-115); Potassium 4.3 mmol/L (3.3-5.1); Sodium 135 mmol/L (135-145)
[2020-04-20 07:45] VITALS: BP 149/81; PULSE 72; RESP 16; TEMP 36.4; O2SAT 98
[2020-04-20] MEDS: Famotidine/PF 20 MG/2 ML VIAL IVPUSH (08:20)
--- NOTE | 2020-04-20 09:17 | MHC.CM.PN ---
nurse lawn care professional note electronic medical record reviewed along with case discussed with staff nurse . met with patient she is active independent in all adls and mobility without any devices, she reported that she lives with her daughter 12yrs old whom has austism but in independent and mobile ,but bnon verbal uses sighn language and has computers , her daughter is being cared for in patients home by a machined parts metal sprayer, s/p nelson surgery on 04/19/20 she has no services in the hme and no she has seep apnea and has nasal cpap [facility] she also has history of anxiety and is followed by thearpist weekly from [facility]. educated about the importance of having a health care proxy . discharge plan home no services (no syurgeons orders for vna) self resumption f her counseling services through [facility] ,confirmed pcpas peggy lorenzo she will call for post hospitla discharge follow up follow up with bariatric surgeon as indicated on her discharge instructions transporation family name card given
--- NOTE | 2020-04-20 14:36 | HO.POSTANES ---
Post Anesthesia Evaluation Post Anesthesia Evaluation Vital Signs: Vital Signs Temp Pulse Resp BP Pulse Ox 04/20/20 07:45 97.6 F 72 16 149/81 H 98 04/20/20 04:00 97.8 F 69 20 145/82 H Anesthesia: General Endotracheal-GETA Mental Status: Awake Pain Control: Satisfactory Nausea/Vomiting: None Hydration: Adequate Anesthesia-Related Issues: No Anes. Related Issues
== END 2020-04-20 09:11 | disposition home or self-care (01) | DRG 403 ==
PROVIDERS: Nurse Practitioner; Physician Assistant; Admitting Provider Surgery; PCP Nurse Practitioner Family; Visit Provider Surgery
PROC: 0DB64Z3 Excision of Stomach, Percutaneous Endoscopic Approach, Vertical (ICD-10-PCS; CPT 43845; principal; 2020-04-19 11:50)
DX: E66.01 Morbid (severe) obesity due to excess calories (principal); K44.0 Diaphragmatic hernia with obstruction, without gangrene; G47.30 Sleep apnea, unspecified; I45.6 Pre-excitation syndrome; K21.9 Gastro-esophageal reflux disease without esophagitis; Z68.41 Body mass index [BMI] 40.0-44.9, adult; J45.909 Unspecified asthma, uncomplicated; Z99.89 Dependence on other enabling machines and devices; Z20.822 Contact with and (suspected) exposure to COVID-19; Z79.899 Other long term (current) drug therapy
CPT/HCPCS: 36415; 80048; 80053; 80061; 81025; 82306; 82607; 82728; 83036; 83525; 83970; 84425; 84443; 84590; 84630; 85014; 85018; 85025; 85610; 85730; 86140; 86850; 86900; 87635; 88307; 88342; 99024; A4649; J0131; J0690; J1100; J1170; J2250; J2405; J2765; J3010

== ENCOUNTER → 2020-04-25 11:10 | Outpatient (BNVA) | payer MEDICAID, SELFPAY | PROVIDERS: PCP Nurse Practitioner Family; Visit Provider Surgery | DX: Z13.89 Encounter for screening for other disorder (principal) | CPT/HCPCS: 99212 ==

== ENCOUNTER → 2020-05-25 08:11 | Outpatient (BNVA) | payer MEDICAID, SELFPAY | PROVIDERS: PCP Nurse Practitioner Family; Visit Provider Surgery | DX: E66.01 Morbid (severe) obesity due to excess calories (principal); Z68.39 Body mass index [BMI] 39.0-39.9, adult | CPT/HCPCS: 99212 ==

== ENCOUNTER → 2020-06-24 08:10 | Outpatient (BNVA) | payer MEDICAID, SELFPAY | PROVIDERS: PCP Nurse Practitioner Family; Visit Provider Surgery | DX: E66.9 Obesity, unspecified (principal); Z68.38 Body mass index [BMI] 38.0-38.9, adult | CPT/HCPCS: 99212 ==

== ENCOUNTER → 2020-07-25 07:43 | Outpatient (BNVA) | payer MEDICAID, SELFPAY | PROVIDERS: PCP Nurse Practitioner Family; Visit Provider Surgery ==

== ENCOUNTER 2020-11-18 09:51 | Outpatient (REF) | payer MEDICAID, SELFPAY | END 2020-11-18 09:52 | disposition home or self-care (01) | LOC: HO.LAB 09:51 | PROVIDERS: Visit Provider Internal Medicine | DX: Z20.822 Contact with and (suspected) exposure to COVID-19 (principal) | CPT/HCPCS: C9803; U0003; U0005 ==

== ENCOUNTER 2024-06-06 12:31 | Emergency (ER) | payer MEDICAID, SELFPAY ==
[2024-06-06 12:41] VITALS: BP 144/104; BP 148/97; PULSE 96; PULSE 98; RESP 21; TEMP 36.5; O2SAT 97; O2SAT 99; BMI 44.3
--- NOTE | 2024-06-06 13:40 | ED_ITS ---
HPI - Allergic Reaction General Chief complaint: Allergic Reaction Stated complaint: ALLERGIC RXN Time Seen by Provider: 06/06/24 13:18 Source: patient and EMS Mode of arrival: EMS Limitations: no limitations History of Present Illness ED Provider: taqueria simons np HPI narrative: Patient is a 43-year-old female who presents emergency department via EMS for evaluation with concern for an anaphylactic reaction. She reports that she has battled for many years with an anaphylactic type reaction of unknown etiology, she describes her presentation in to include severe strong abdominal pain with complete intestinal evacuation either with diarrhea or vomiting and intense heat sensation to the palms of her hands and soles of her feet. she follows with an occupancy specialist last saw him approximately 1 year ago. Has had multiple testing done without identifiable cause. She has an EpiPen to take as needed but her EpiPen was therefore she did not take it today. She states that when she gets these episodes sometimes they resolve on their own very quickly after taking Benadryl. She took the Benadryl which resolved her hives but she continued to feel a heat like sensation to the palms and soles of her feet so she was worried that her symptoms would not fully resolve therefore she contacted 911 for transport. At the time of my evaluation she reports that all of her symptoms has resolved and she would like to return home at this time. She denies any known allergens, new exposures to food or medications nor soaps detergents lotions etc. currently she denies any further hives, shortness of breath, difficulty breathing, throat closing sensation. Related Data Home Medications ?Medication ?Instructions ?Recorded ?Confirmed epinephrine 0.3 mg/0.3 mL 0.3 mg IM Q10M PRN Itching 12/22/19 04/15/20 injection, auto-injector fexofenadine 180 mg tablet 180 mg PO DAILY 12/22/19 04/15/20 (Marlen Allergy) norethindrone acetate 1.5 1 tab PO DAILY 04/19/20 04/19/20 mg-ethinyl estradiol 30 mcg tablet (Junel) sucralfate 100 mg/mL oral 10 ml PO BID 04/19/20 04/19/20 suspension (Carafate) Previous Rx's ?Medication ?Instructions ?Recorded pantoprazole 40 mg tablet,delayed 40 mg PO DAILY #30 tabs 03/25/20 release docusate sodium 100 mg capsule 100 mg PO DAILY #30 caps 05/03/20 (Colace) epinephrine 0.3 mg/0.3 mL 0.3 mg (0.3 mL) IM Q10M PRN 06/06/24 injection, auto-injector anaphylaxis #2 ea Allergies Allergy/AdvReac Type Severity Reaction Status Date / Time No Known Allergies Allergy Verified 06/06/24 12:43 [No Known Allergies*] Review of Systems Review of Systems: Yes all other systems are reviewed and are negative FOR[facility]LY [facility] Past Medical History Attestation statement: The following information was validated with the patient. Source: old records reviewed Medical History Asthma GERD (gastroesophageal reflux disease) Idiopathic urticaria Allergic rhinitis Hemangioma of liver Hemangioma IUD (intrauterine device) in place History of PCOS Anxiety Pilar cysts Hx of chronic urticaria Liver mass, right lobe Cholelithiasis Liver mass, left lobe Vitamin A deficiency Back pain Oosfv-Fsdcvkgkx-Cutoc (WPW) syndrome Depression Sleep apnea with use of continuous positive airway pressure (CPAP) Morbid obesity Surgical History History of sleeve gastrectomy Hx laparoscopic cholecystectomy H/O cardiac radiofrequency ablation S/P tonsillectomy Family History Family History Mother No problems noted. Father No problems noted. Brother No problems noted. Brother No problems noted. Sister No problems noted. Sister No problems noted. Daughter Autism Cerebral palsy Social History Social History (Updated 04/15/20 @ 12:43 by Adwoa Kuo RN) Are you a primary medical care evaluation specialist to a significant other at home: Yes (daughter with Cerebral Palsy,autism) Do you presently have visiting nurse or other home services: Yes (daughter has services once a week) Alcohol intake: never Comment: aware of trip hazard Smoked in Last 30 Days: No Use of substances other than those prescribed or required for medical reasons: No Advance Directives: No Advance Directives Information Provided: No Do you have a plan to hurt others: No Plan Patient : No service: No Current occupational status: other Physical Exam ED Vital Signs: Vital Signs - 24 hr 06/06/24 12:41 Temperature 97.7 F Pulse Rate 98 Respiratory Rate 21 H Blood Pressure 148/97 H Pulse Oximetry 97 Oxygen Delivery Method Room Air BMI result Body Mass Index 44.3 Appearance: Alert.?Oriented to person, place and time. No acute distress.?Normal affect. Eyes: Pupils equal, round and reactive to light.? No periorbital swelling. ENT: Pharynx normal.? Uvula midline. No angioedema/ swelling of the tongue/face. ? Neck: Normal inspection.? Neck supple.??No adenopathy CVS: Heart sounds normal. Normal heart rate and rhythm.? Pulses normal.?? Respiratory: No respiratory distress.? Lung sounds clear to auscultation bilaterally?? Abdomen: Soft and non-tender. Normoactive bowel sounds. Skin: Skin warm and dry.? Normal skin color.? No rashes or lesions Extremities: No lower extremity edema.? No calf ttp? Neuro: Moves all extremities spontaneously. Sensation intact bilaterally. No focal neuro deficits. Ambulates with normal steady gait. Medical Decision Making Medical Decision Making MDM Narrative: Patient is a 43-year-old female with past medical history of asthma, GERD, idiopathic urticaria, hemangioma of the liver, cholelithiasis, vitamin-D deficiency, WPW syndrome, RAKEL who presents emergency department with concern for anaphylactic type reaction as per HPI. When she arrived to emergency department there is no signs of anaphylaxis; no angioedema, no respiratory distress, LS CTA, no hives/urticaria, no pruritus, resolved symptoms as described earlier, no current abdominal pain nausea or vomiting. Denies any recent ill like symptoms to suggest a sepsis/infectious etiology. She is Speaking full sentences, and handling secretions without difficulty. There is no obvious threat to airway. Not c/w SSSS/ TEN/Erythema multiforme/ Ortiz Johnsons. She is requesting discharge home at this time which I feel is reasonable, I did discuss with her potential observation. In the emergency department but she feels she needs to get home to her child as fuse spooler is not able to stay with her any longer. We discussed strict return precautions. All questions answered. Given the exploration of her EpiPen I will send a new one to her pharmacy. All questions answered Differential Diagnosis Differential Diagnoses: The differential diagnosis associated with the presentation includes (See narrative above) Admission/Observation Consideration of admission/observation: Escalation of care including admission/observation considered Independent Historian Clinical information obtained from an independent historian. History obtained from or confirmed by: EMS External Record Review External record reviewed: Outpatient record Prescription Management I considered prescription management with: Other (See narrative above) Discharge Plan Discharge Clinical Impression: Allergic reaction Patient Disposition: Home, Self-Care Instructions: Epinephrine (By injection) Additional Instructions: You were evaluated in the emergency department with concern for allergic type reaction the head resolved by the time that you were arrived after taking Benadryl at home. You were offered to remain in the emergency department for an observation. You however have declined and feel well enough to return home at this time. Continue taking your medication as prescribed. A new prescription for EpiPen has been sent to your pharmacy to use only as needed for severe reaction, difficulty breathing, throat closing sensation. Any time that you need to use an EpiPen you should presents emergency department promptly for evaluation afterwards as this can and packed your heart activity. Prescriptions: New epinephrine 0.3 mg/0.3 mL auto-injector 0.3 mg IM Q10M PRN (Reason: anaphylaxis) Qty: 2 0RF Rx Instructions: for 2 doses No Action docusate sodium [Colace] 100 mg capsule 100 mg PO DAILY Qty: 30 2RF sucralfate [Carafate] 100 mg/mL suspension 10 ml PO BID norethindrone ac-eth estradiol [Junel (21)] 1.5-30 mg-mcg tablet 1 tab PO DAILY fexofenadine [Marlen Allergy] 180 mg tablet 180 mg PO DAILY epinephrine 0.3 mg/0.3 mL auto-injector 0.3 mg IM Q10M PRN (Reason: Itching) Rx Instructions: for 2 doses pantoprazole 40 mg tablet,delayed release (DR/EC) 40 mg PO DAILY Qty: 30 2RF Referrals: Physician,Unknown J [Primary Care Provider] - Print Language: Telugu
[2024-06-06 13:53] VITALS: BP 148/97; PULSE 98; RESP 21; TEMP 36.5; O2SAT 97
== END 2024-06-06 14:02 | disposition home or self-care (01) ==
PROVIDERS: Emergency Provider Emergency Medicine
DX: L50.0 Allergic urticaria (principal); Z79.899 Other long term (current) drug therapy
CPT/HCPCS: 99283